=== PATIENT | male | born 2000 | race Two or more races ===

== ENCOUNTER 2022-04-09 13:22 | Emergency (ER) | payer SELFPAY ==
[~2022-04-09] VITALS: Ht 180.3 cm; Wt 72.6 kg
--- NOTE | 2022-04-09 13:30 | NUR ---
RECEIVED PT 21 yrs old male c/o abdominal pain and chronic open wound got worse more pain and draning now
[2022-04-09 13:55] VITALS: BP 150/90
[2022-04-09] MEDS ORDERED: CLIN300C12 PO (15:43)
== END 2022-04-09 15:50 | disposition home or self-care (01) ==
LOC: ER 13:29
DX: R22.2 Localized swelling, mass and lump, trunk (principal)

== ENCOUNTER 2023-09-20 16:54 | Emergency (ER) | payer BC, OTHER ==
[~2023-09-20] VITALS: Ht 180.3 cm; Wt 81.6 kg
[~2023-09-20 16:54] MED LIST: CLIN300C12 PO
[2023-09-20 18:29] VITALS: BP 140/77; TEMP 98.1; O2SAT 97
== END 2023-09-20 18:29 | disposition home or self-care (01) ==
LOC: ER 17:00
DX: R07.9 Chest pain, unspecified (principal)
CPT/HCPCS: 71045-TC